=== PATIENT | male | born 2000 | race Caucasian/White ===

== ENCOUNTER → 2022-09-20 | Outpatient (CLI) | payer BC ==
--- NOTE | 2022-09-20 18:58 | DIREP ---
PROCEDURE:XRAY HAND MIN 3 VW-RT COMPARISON:None. INDICATIONS:PAIN IN RIGHT HAND FINDINGS: BONES:Vertical oblique intra-articular fracture involving the volar ulnar base of the 1st metacarpal. There is distraction of the fracture fragment. Evaluation is limited for true lateral view of the thumb but 4 mm of distraction is suspected. JOINTS:Normal. SOFT TISSUES:Normal. OTHER:No additional findings. CONCLUSION: 1. Distracted vertical oblique intra-articular fracture involving the volar ulnar base of the 1st metacarpal. Dictated by: Andres Negrete MD on 09/20/2022 at 06:54 PM
== END | disposition home or self-care (01) ==
LOC: RAD 17:22
PROVIDERS: ATTEND Nurse Practitioner Family
DX: S52.231A Displaced oblique fracture of shaft of right ulna, initial encounter for closed fracture (principal); X58.XXXA Exposure to other specified factors, initial encounter; Y93.89 Activity, other specified; Y92.89 Other specified places as the place of occurrence of the external cause; Y99.8 Other external cause status
CPT/HCPCS: 73130-RT

== ENCOUNTER → 2022-09-27 | Day surgery (SDC) | payer BC ==
[2022-09-22 15:37] LABS: BASOPHIL % 0.4 % (0.0-0.2); EOSINOPHIL # 0.3 10^3/uL (0.0-0.2); EOSINOPHIL % 3.7 % (0.0-5.0); LYMPHOCYTES # 2.31 10^3/uL1 (1.0-4.8); LYMPHOCYTES % 28.2 % (24.0-44.0); MONOCYTES # 0.5 10^3/uL (0.3-0.8); MONOCYTES % 6.6 % (5.0-12.0); NEUTROPHILS % 60.9 % (41.0-85.0); PLATELET COUNT 260 10^3/uL (150-400); RED CELL DISTRIBUTION WIDTH 11.8 % (11.5-14.5)
[2022-09-22 15:50] LABS: CARBON DIOXIDE 28.3 mmol/L (20.0-32)
[~2022-09-27] VITALS: Ht 167.6 cm; Wt 99.8 kg
[2022-09-27] VITALS (15 sets, daily range): BP systolic 99–144; BP diastolic 61–97
[~2022-09-27] MED LIST: ANCEF IV ONE; DECADRON ONE; DILAUDID ONE; DIPRIVAN IV ONE; LACTATED RINGERS 1,000 ML IV SCH; NS 100ML 100 ML IV ONE; OFIRMEV 100 ML IV ONE; SENSORCAINE-MPF 0.25% VIAL ONE; SODIUM CHLORIDE IRR BOTTLE IR ONE; SUBLIMAZE ONE; TORADOL ONE; XYLOCAINE 2% 5ML VIAL ONE; ZOFRAN ONE
--- NOTE | 2022-09-27 09:16 | OPH ---
DATE OF SURGERY: 09/27/2022 DICTATOR NAME: Donald Wilks MD PREOPERATIVE DIAGNOSIS: Mir's fracture of the base of the right thumb metacarpal. POSTOPERATIVE DIAGNOSIS: Mir's fracture of the base of right thumb metacarpal. OPERATIVE PROCEDURE: Closed reduction with percutaneous pinning, right thumb metacarpal fracture. SURGEON: Donald Wilks MD. ANESTHESIA: LMA. TOURNIQUET TIME: None. BLOOD LOSS: 5 mL DESCRIPTION OF INDICATIONS: The patient is a 21-year-old male who injured his right thumb about a week ago when he fell off a ladder. He suffered a Mir's fracture of the base of his right thumb metacarpal that was displaced. He was taken to the operating room today for closed, possible open reduction with internal fixation of the right thumb metacarpal fracture. DESCRIPTION OF PROCEDURE: The patient was placed in the operating table in the supine position. An LMA anesthetic was induced without difficulty. The patient had the right upper extremity sterilely prepped and draped. The patient then had the fracture reduced with traction and manipulation. Intraoperative C-arm views showed satisfactory reduction of the fracture. We then placed one 0.035 pin from the metacarpal into the trapezium. A second pin was then placed through the fracture site at the base of the thumb metacarpal. Final AP and lateral x-ray showed satisfactory reduction of the fracture in both planes and satisfactory hardware position. The pins were bent and then cut off outside the skin. The patient then had a padded thumb spica splint applied. He was extubated in the operating room and sent to recovery in stable condition. Donald Wilks MD DR: KEYONNA/RAMY TID: [id number] RECEIPT: [id number]
[2022-09-27] MEDS: DILAUDID IV PRN ×2 (09:30→09:43)
--- NOTE | 2022-09-27 10:09 | DIREP ---
PROCEDURE:XRAY FINGER-RT COMPARISON:None. INDICATIONS:POST OP TECHNIQUE:Three views of the right 1st digit FINDINGS: BONES:Oblique intra-articular fracture involving the ulnar base of the 1st metacarpal with mild distraction status post pin fixation. No visible callus formation. JOINTS:Normal. SOFT TISSUES:Normal. OTHER:No additional findings. CONCLUSION: 1. Oblique intra-articular fracture involving the ulnar base of the 1st metacarpal with mild distraction, status post pin fixation. Dictated by: Andres Negrete MD on 09/27/2022 at 10:05 AM
== END | disposition home or self-care (01) ==
LOC: SURG 06:04
PROVIDERS: ATTEND Orthopaedic Surgery
DX: S62.211A Bennett's fracture, right hand, initial encounter for closed fracture (principal); Z90.49 Acquired absence of other specified parts of digestive tract; X58.XXXA Exposure to other specified factors, initial encounter; Y93.89 Activity, other specified; Y92.89 Other specified places as the place of occurrence of the external cause; Y99.8 Other external cause status
CPT/HCPCS: 80053; 85025; 36415; 26608; 73140; J1100; A4217; J1170; J0131; J3490 ×2; J2001; J2405; J1885; J3010; 76000; C1713

== ENCOUNTER → 2022-10-11 | Outpatient (CLI) | payer BC ==
--- NOTE | 2022-10-12 11:00 | DIREP ---
PROCEDURE:XRAY HAND MIN 3 VW-RT COMPARISON:[facility], CR, XRAY FINGER-RT MIN 2 VIEWS, 09/27/2022, 09:19 AM. [facility], CR, XRAY FINGER-RT MIN 2 VIEWS, 10/11/2022, 03:19 PM. INDICATIONS:RIGHT THUMB FX FINDINGS: BONES:Intra-articular fracture at the base of the 1st metacarpal with 2 K-[address] place. No significant movement of bone all when compared to 09/27/2022. 1-2 mm medial/ulnar are displacement of the medial fracture fragment. Decreased definition of the fracture site suggestive of interval development of callus formation between the fracture fragments. Tiny, 2 mm, avulsion fracture fragment along the radial/lateral margin of the trapezium, unchanged in appearance when compared to the prior exam. JOINTS:Normal. SOFT TISSUES:Normal. OTHER:No additional findings. CONCLUSION: 1. There are findings suggestive of interval partial healing of see seen previously seen fracture at the base of the loop right 1st metacarpal. 2. Re-demonstrated tiny avulsion fracture fragment lateral aspect of the trapezium. Dictated by: Raymond Cheng M.D. on 10/12/2022 at 10:55 AM
--- NOTE | 2022-10-12 11:06 | DIREP ---
PROCEDURE:XRAY FINGER-RT COMPARISON:[facility], CR, XRAY HAND MIN 3 VW-RT, 09/20/2022, 05:32 PM. [facility], CR, XRAY HAND MIN 3 VW-RT, 10/11/2022, 03:15 PM. [facility], CR, XRAY FINGER-RT MIN 2 VIEWS, 09/27/2022, 09:19 AM. INDICATIONS:RIGHT THUMB FX FINDINGS: BONES:Intra-articular fracture at the base of the 1st metacarpal with [address] K-[address] No significant movement of bone all when compared to 09/27/2022. 1-2 mm medial/ulnar are displacement of the medial fracture fragment. Decreased definition of the fracture site suggestive of interval development of callus formation between the fracture fragments. Tiny, 2 mm, avulsion fracture fragment along the radial/lateral margin of the trapezium, unchanged in appearance when compared to the prior exam. JOINTS:No subluxation dislocation. 2 mm step-off at the articular surface, base of the 1st metacarpal, due to fracture.. SOFT TISSUES:Normal. OTHER:Bone detail is somewhat obscured by the overlying splint go. CONCLUSION: 1. Interval partial healing of fracture the base of the right 1st metacarpal. 2. Small step-off deformity in the articular surface, base of the 1st metacarpal due to fracture. Dictated by: Raymond Cheng M.D. on 10/12/2022 at 11:03 AM
== END | disposition home or self-care (01) ==
LOC: RAD 15:04
PROVIDERS: ATTEND Orthopaedic Surgery
DX: S62.201D Unspecified fracture of first metacarpal bone, right hand, subsequent encounter for fracture with routine healing (principal); X58.XXXD Exposure to other specified factors, subsequent encounter
CPT/HCPCS: 73130-RT; 73140-RT

== ENCOUNTER 2023-02-06 09:58 | Emergency (ER) | payer BC ==
[~2023-02-06] VITALS: Ht 167.6 cm; Wt 95.3 kg
[2023-02-06 10:07] VITALS: BP 155/105; PULSE 73; RESP 18; TEMP 98.2; O2SAT 97
[2023-02-06] MEDS ORDERED: TORADOL IM STA (10:12)
--- NOTE | 2023-02-06 10:37 | DIREP ---
PROCEDURE:XRAY HAND MIN 3 VW-RT COMPARISON:[facility], CR, XRAY HAND MIN 3 VW-RT, 10/11/2022, 03:15 PM. INDICATIONS:pain/injury previous surgery FINDINGS: BONES:No acute fractures. Metal pin present in the trapezium. JOINTS:Normal. SOFT TISSUES:Normal. OTHER:No additional findings. CONCLUSION:No acute right hand abnormalities. Dictated by: Chinedu Merchant M.D. on 02/06/2023 at 10:30 AM
[2023-02-06] MEDS ORDERED: TORADOL ONE (10:49)
--- NOTE | 2023-02-06 11:05 | ER.PDOC ---
General Chief Complaint: Extremities Stated Complaint: LAC ON RIGHT MIDDLE FINGER Time seen by MD: 10:07 Source: patient Exam Limitations: no limitations History of Present Illness Initial Comments Patient is a 22-year-old male with a past medical history of surgery on his right hand who comes in with a right hand laceration and pain after injuring it while working. Patient states he dropped something heavy on it that had a sharp element he states he sustained a laceration on the ventral portion of his right middle finger at the DIP joint. Patient states that he is got associated symptom of sore to sharp in nature pain made worse with palpation better with rest. He denies any other symptoms or concerns at this time. Patient states that he is up-to-date on his tetanus as last years when he had the surgery and they gave it to him at that point. Allergies: Coded Allergies: No Known Allergies (Unverified , 09/24/22) Home Meds No Active Prescriptions or Reported Meds Past Medical History Medical History: no pertinent history Surgical History: appendectomy Family History Significant Family History: no pertinent family hx Social History Smoking: non-smoker Alcohol Use: heavy Drug Use: none Reviewed Nursing Reviewed: Vital Signs, Abn. Noted, Nursing Assessment Review of Systems Constitutional: no symptoms reported EENTM: no symptoms reported Respiratory: no symptoms reported Cardiovascular: no symptoms reported Gastrointestinal: no symptoms reported Genitourinary: no symptoms reported Musculoskeletal: joint swelling Skin: change in color Psychiatric/Neurological: no symptoms reported Physical Exam General Appearance: Alert, No Apparent Distress Hand: tenderness (Right hand middle finger has a 2 cm shallow laceration the patient states that he bent his finger back and he is worried that) Wrist: nml inspection, non-tender, nml ROM Neuro: sensation nml, motor nml Vascular: no vascular compromise Tendons: tendon function nml Forearm/Elbow/Arm: uninjured above wrist Skin: warm/dry Head/ENT: nml inspection, pharynx nml Neck/Back: nml inspection, non-tender Resp/CVS: no resp distress, lungs clear, heart sounds nml, reg. rate & rhythm Abdomen: non-tender, no organomegaly ED LACERATION WOUND REPAIR Wound Location & Length (Requi: right middle digit Wound Length (cm): 2 Wound cleaned: betadine Distal NVT: neuro intact, vasc intact Anesthesia type: Not Applicable/None Wound's Depth, Shape: superficial Irrigated w/ Saline (ccs): 400 Wound Explored: clean Tendon Intact: Yes Wound Debrided: minimal Wound Repaired With: dermabond Sterile Dressing Applied?: Yes Results/Orders Results/Orders Orders - RAMILA HERNANDEZ MD Xr Hand Rt (02/06/23 10:12) Ketorolac Tromethamine (Toradol) (02/06/23 10:12) Vital Signs Date Time Temp Pulse Resp B/P (MAP) Pulse Ox O2 Delivery O2 Flow Rate FiO2 02/06/23 10:07 98.2 73 18 97 02/06/23 10:07 98.2 73 18 02/06/23 10:07 98.2 73 18 155/105 (122) 97 Room Air* 0 21 Administered Medications Medications (Trade) Dose Ordered Sig/Pamella Route PRN Reason Start Time Stop Time Status Last Admin Dose Admin Ketorolac Tromethamine (Toradol) 15 mg OT STAT IM 02/06/23 10:12 02/06/23 10:13 UNV 02/06/23 10:56 15 MG Progress Progress Patient here with like an injury to her right hand we will go ahead and obtain an x-ray patient tetanus already updated and continue to monitor. 1102 Reassessmentmy independent rotation of patient's x-ray shows nothing acute radiology later agreed. Repaired the laceration with Dermabond he can see that portion of the note. Patient voiced understanding when to follow-up and when to return to the ER. Will dc with ketorolac Rx and keflex ppx rx ER DEPART Departure Time of Disposition: 11:02 Disposition: 01 HOME / SELF CARE / HOMELESS Impression: Primary Impression: Finger laceration Condition: Improved Patient Instructions: Laceration Care, Adult Referrals: PCP,UNKNOWN (PCP) PRIMARY CARE PROVIDER Additional Instructions: Follow-up with your primary care provider within the next week. If you have any new persistent or worsening symptoms or concerns seek medical attention. Please take all medications as prescribed. Scripts No Active Prescriptions or Reported Meds Duration or Time Spent with Pa: 30 Problem Qualifiers Primary Impression: Finger laceration Encounter type: initial encounter Finger: middle finger Damage to nail status: without damage Foreign body presence: without foreign body Laterality: right Qualified Codes: S61.212A - Laceration without foreign body of right middle finger without damage to nail, initial encounter RAMILA HERNANDEZ MD Feb 06, 2023 11:05
== END 2023-02-06 11:15 | disposition home or self-care (01) ==
LOC: ER 09:58
DX: S61.212A Laceration without foreign body of right middle finger without damage to nail, initial encounter (principal); Z90.49 Acquired absence of other specified parts of digestive tract; X58.XXXA Exposure to other specified factors, initial encounter; Y93.89 Activity, other specified; Y92.89 Other specified places as the place of occurrence of the external cause; Y99.8 Other external cause status
CPT/HCPCS: 99284; 12001; 73130; 96372; A4649; J1885